=== PATIENT | female | born 1985 | race Caucasian/White ===

== ENCOUNTER → 2018-01-29 | Outpatient (CLI) | payer BC ==
--- NOTE | 2018-01-29 09:25 | RAD ---
Left ring finger, 3 views, 01/29/2018: HISTORY: Pain and swelling, injury No fracture or dislocation is identified. IMPRESSION: No acute bony abnormality is detected. Electronically signed by: Micheal Strauss MD (01/29/2018 9:22 AM) [facility]
== END | disposition home or self-care (01) ==
LOC: PMG 08:41
PROVIDERS: ATTEND Family Medicine
DX: S69.92XD Unspecified injury of left wrist, hand and finger(s), subsequent encounter (principal); X58.XXXD Exposure to other specified factors, subsequent encounter
CPT/HCPCS: 73130

== ENCOUNTER 2019-01-19 09:26 | Emergency (ER) | payer BC ==
[2019-01-19] MEDS ORDERED: ONDANSETRON PF 4 MG/2 ML VIAL. IV ONE (10:00)
--- NOTE | 2019-01-19 10:26 | RAD ---
EXAM: Left index finger, 3 views. HISTORY: Laceration. COMPARISON: None. FINDINGS: 3 views of the left index finger are obtained. There is a laceration involving the distal second finger soft tissues. No fracture or radiodense foreign body is seen. IMPRESSION: Laceration involving the distal second finger soft tissues. No fracture or foreign body is seen. Electronically signed by: Arnia Steele MD (01/19/2019 10:23 AM) [facility]
--- NOTE | 2019-01-19 11:05 | PHYS DOC ---
Adult General Chief Complaint Chief Complaint: FINGER INJURY HPI HPI Patient is a 33-year-old female who presents with complaint of injury to her left index finger that she sustained while she was cutting some baseboard utilizing miter saw. She states that she had turned around to see a young child who was approaching her and did not realize that her finger was in the way when the miter saw came down. She denies any other injuries. Review of Systems Review of Systems Constitutional: Denies fever or chills [] Respiratory: Denies cough or shortness of breath [] Cardiovascular: No additional information not addressed in HPI [] Musculoskeletal: Positive left index finger pain [] Integument: Positive laceration left index finger[] Neurologic: Denies headache, focal weakness [] Current Medications Current Medications Current Medications Medications (Trade) Dose Ordered Sig/Trinity Start Time Stop Time Status Last Admin Dose Admin Fentanyl Citrate (Fentanyl 2ml Vial) 50 mcg 1X ONCE 01/19/19 10:00 01/19/19 10:01 UNV Ondansetron HCl (Zofran) 4 mg 1X ONCE 01/19/19 10:00 01/19/19 10:01 UNV Physical Exam Physical Exam Constitutional: Well developed, well nourished, no acute distress, non-toxic appearance. [] Cardiovascular:Heart rate regular rhythm, no murmur [] Lungs & Thorax: Bilateral breath sounds clear to auscultation [] Skin: Positive laceration/avulsion of skin and soft tissue distal palmar aspect of left index finger. [] Extremities: Left index finger demonstrates a laceration with significant tissue avulsion to the ulnar aspect of distal phalanx measuring approximately 3 cm with ragged margins. [] Neurologic: Alert and oriented X 3, normal motor function, normal sensory function, no focal deficits noted. [] EKG EKG [] Radiology/Procedures Radiology/Procedures [] Impressions: PROCEDURE: FINGER(S) LEFT EXAM: Left index finger, 3 views. HISTORY: Laceration. COMPARISON: None. FINDINGS: 3 views of the left index finger are obtained. There is a laceration involving the distal second finger soft tissues. No fracture or radiodense foreign body is seen. IMPRESSION: Laceration involving the distal second finger soft tissues. No fracture or foreign body is seen. Electronically signed by: Arina Steele MD (01/19/2019 10:23 AM) [facility] Course & Med Decision Making Course & Med Decision Making Pertinent Labs and Imaging studies reviewed. (See chart for details) Laceration Repair by me: Anesthesia: 1% lidocaine locally Location: Distal aspect of left index finger Tendon/Joint/Nerves: No injury Foreign body: None detected after copious irrigation and exploration Technique: A total of 4 Simple Interrupted loose Sutures were placed for reapproximation of wound margins Complexity: No subcutaneous sutures/mucosal repair/edge excision Post Closure Length: 3 cm Patient's bleeding was easily controlled in the department and there is no indication of anemia. No evidence of compartment syndrome, neurologic injury, vascular injury, open joint, tendon laceration, or foreign body. Patient is appropriate for outpatient follow up. 48 hour wound check. Scar minimization instructions given. Dragon Disclaimer Dragon Disclaimer This electronic medical record was generated, in whole or in part, using a voice recognition dictation system. Departure Departure: Impression: Primary Impression: Finger laceration Disposition: HOME, SELF-CARE Condition: STABLE Referrals: EDWARD CAVAZOS (PCP) Patient Instructions: Fingertip Laceration Additional Instructions: Call hand clinic tomorrow morning to schedule appointment within the next 48 hours at: Scripts Cephalexin (KEFLEX) 500 Mg Capsule 500 MG PO BID for infection prevention, #20 TAB Prov: BROOK BROUSSARD Jr. DO 01/19/19 Ondansetron Hcl (ZOFRAN) 4 Mg Tablet 4 MG PO Q6HRS PRN for PAIN, #12 TAB Prov: BROOK BROUSSARD Jr. DO 01/19/19 Hydrocodone Bit/Acetaminophen (HYDROCODONE-APAP 7.5-325 ) 1 Each Tablet 1 TAB PO PRN Q6HRS PRN for PAIN, #15 TAB 0 Refills Prov: BROOK BROUSSARD Jr. DO 01/19/19 Problem Qualifiers Primary Impression: Finger laceration Encounter type: initial encounter Finger: index finger Damage to nail status: without damage Foreign body presence: without foreign body Laterality: left Qualified Codes: S61.211A - Laceration without foreign body of left index finger without damage to nail, initial encounter BROOK BROUSSARD Jr., DO January 19, 2019 11:05
[2019-01-19] MEDS ORDERED: HYDR-2765 PO (11:22)
[2019-01-19] MEDS ORDERED: CEPH-264 PO (11:22)
[2019-01-19] MEDS ORDERED: ONDA4TAB7 PO (11:22)
[2019-01-19] MEDS ORDERED: BACITRACIN/POLYMYXIN B OPHTH OINTMENT 3.5GM TUBE. ONE (11:31)
[2019-01-19] MEDS ORDERED: NEOMY/BACITR/POLYMYXIN OINT PACKET. TP ONE (11:32)
== END 2019-01-19 11:46 | disposition home or self-care (01) ==
LOC: ER 09:26
DX: S61.211A Laceration without foreign body of left index finger without damage to nail, initial encounter (principal); W29.8XXA Contact with other powered hand tools and household machinery, initial encounter; Y93.89 Activity, other specified; Y92.89 Other specified places as the place of occurrence of the external cause; Y99.8 Other external cause status
CPT/HCPCS: 12002; 73140; 96374; 96375; 96376; 99284; J2405; J3010

== ENCOUNTER → 2021-09-30 | Outpatient (CLI) | payer BC ==
[~2021-09-30] MED LIST: CEPH-264 PO; HYDR-2765 PO; ONDA4TAB7 PO
--- NOTE | 2021-09-30 18:26 | RAD ---
EXAM: Right foot 3 views. HISTORY: Pain after injury. COMPARISON: None. FINDINGS: Three views of the right foot are obtained. No fractures are identified. Alignment is normal. Joint spaces are maintained. There is a moderate pl aletha calcaneal spur. IMPRESSION: 1. No fracture. Electronically signed by: Cuong Spence MD (09/30/2021 6:23 PM) [facility]
== END ==
LOC: RAD 17:35
PROVIDERS: ATTEND Physician Assistant
DX: S99.921A Unspecified injury of right foot, initial encounter (principal); M77.31 Calcaneal spur, right foot; X58.XXXA Exposure to other specified factors, initial encounter; Y93.89 Activity, other specified; Y92.89 Other specified places as the place of occurrence of the external cause; Y99.8 Other external cause status
CPT/HCPCS: 73630